=== PATIENT | male | born 1965 | race Caucasian/White ===

== ENCOUNTER → 2017-12-27 | Outpatient (CLI) | payer OTHER | LOC: M WUC 14:26 | DX: S46.012A Strain of muscle(s) and tendon(s) of the rotator cuff of left shoulder, initial encounter (principal); X58.XXXA Exposure to other specified factors, initial encounter; Y92.9 Unspecified place or not applicable | CPT/HCPCS: 73030 ==

== ENCOUNTER → 2020-06-02 | Outpatient (CLI) | payer BC ==
--- NOTE | 2020-06-02 16:03 | REP ---
INDICATION: EPIDIDYMITIS. COMPARISON: None. TECHNIQUE: Real-time sonographic evaluation of scrotum and contents performed. FINDINGS: The testicles are normal in size and echotexture, right testicle measuring 4.3 x 2.1 x 2.9 cm and left testicle 4.2 x 2.3 x 2.6 cm. There are bilateral varicoceles present, with bilateral prominent venous structures more so on the right than on the left. A cyst in the head of the right epididymis measures slightly greater than 1 cm in maximum diameter. There is no current evidence of epididymitis or orchitis. There is no testicular mass or torsion. Appears to be mild tubular ectasia in the mediastinum of each testis. Blood flow is seen in each testicle with duplex Doppler evaluation. IMPRESSION: No testicular mass or torsion. No current evidence of epididymitis. There is a cyst in the head of the right epididymis slightly greater than 1 cm in maximum diameter. There are bilateral varicoceles, right larger than the left. <Electronically signed by John Awan > 06/02/20 [id number]
== END ==
LOC: M RAD 15:04
PROVIDERS: ATTEND Urology
DX: N50.3 Cyst of epididymis (principal); I86.1 Scrotal varices

== ENCOUNTER → 2020-06-22 | Outpatient (CLI) | payer BC ==
--- NOTE | 2020-06-23 15:22 | SLEEPCENT ---
NOCTURNAL POLYSOMNOGRAPHY DATE: 06/22/2020 ORDERED BY: GEN Fuentes Nocturnal polysomnography was performed for evaluation of sleep physiology. 8 hours and 11 minutes of data were reviewed. There were 268 minutes of sleep identified. Sleep latency was mildly prolonged at 35 minutes. REM latency more so prolonged at 226 minutes. Sleep architecture once established was fair with some fragmentation. Overall sleep efficiency was only 55.2% due to a period of wake after sleep onset. The electrocardiogram showed a sinus rhythm with an average heart rate of 60 beats per minute. EEG showed some artifactual change. No focal events were identified. There were normal waveforms for wake and sleep. There were 140 respiratory events identified of 10 seconds in duration or greater for apnea-hypopnea index of 31.3. The events were obstructive not exclusive to sleep stage nor body posture. Arousals from respiratory events occurred 12.5 times per hour and oxygen desaturations were seen into the 80s. There was some activity in the limb leads, but arousals from limb events were few. IMPRESSION: Obstructive sleep apnea syndrome (G47.33), apnea-hypopnea index 31.5. RECOMMENDATION: The patient should be encouraged to return to [facility]. In the interim, alcohol and sedative avoidance should be practiced and caution exercised during the operation of motor vehicles. Dr. Rivas
== END ==
LOC: M SLEEP 20:00
PROVIDERS: ATTEND Nurse Practitioner Family
DX: G47.33 Obstructive sleep apnea (adult) (pediatric) (principal)

== ENCOUNTER → 2020-07-01 | Outpatient (REF) | payer BC ==
[2020-07-01 13:27] LABS: APPEARANCE, URINE CLEAR (CLEAR); BACTERIA, URINE AUTO NEGATIVE (NEGATIVE); BILIRUBIN, URINE AUTO NEGATIVE (NEGATIVE); BLOOD, URINE BLOOD NEGATIVE (NEGATIVE); CALCIUM OXALATE CRYSTALS SMALL; COLOR, URINE YELLOW (YELLOW); GLUCOSE, URINE (UA) AUTO NEGATIVE (NEGATIVE); KETONE, URINE AUTO NEGATIVE (NEGATIVE); LEUKOCYTE ESTERASE, URINE AUTO NEGATIVE (NEGATIVE); MUCUS, URINE SMALL (NEGATIVE); NITRITE, URINE AUTO NEGATIVE (NEGATIVE); PROTEIN, URINE AUTO NEGATIVE (NEGATIVE); RBC, URINE AUTO 1 /HPF (0-3); SPECIFIC GRAVITY URINE AUTO 1.026 (1.002-1.035); SQUAMOUS EPITHELIAL CELL UR AU 0 /HPF (0-6); UROBILINOGEN, URINE AUTO 0.2 mg/dL (0.0-2.0); WBC, URINE AUTO 0 /HPF (0-3)
== END ==
LOC: M SMT 12:42
PROVIDERS: ATTEND Urology
DX: N45.1 Epididymitis (principal)

== ENCOUNTER → 2020-07-17 | Outpatient (CLI) | payer BC ==
--- NOTE | 2020-07-18 14:54 | SLEEPCENT ---
NOCTURNAL POLYSOMNOGRAPHY DATE: 07/17/2020 ORDERED BY: GEN Fuentes Diagnostic nocturnal polysomnography was performed for the titration of pressure therapy in this patient with obstructive sleep apnea syndrome with apnea-hypopnea index of 31.5. For testing the patient was fit with a ResMed Quattro full face mask of large size was used, 4 cm of water pressure were applied to the circuit, and the lights were extinguished. 7 hours and 38 minutes of data were reviewed. There were 185 minutes of sleep identified. Sleep latency was delayed at 153.5 minutes. REM latency was normal at 102 minutes. Sleep architecture once established was reasonably good. There was one REM cycles noted. Overall sleep efficiency was 41.2%. The electrocardiogram showed a sinus rhythm with occasional PVCs with average heart rate of 68 beats per minute. EEG showed normal waveforms for wake and sleep. Respiratory events were best palliated with CPAP at a pressure of +8. IMPRESSION: Obstructive sleep apnea syndrome (G47.33). RECOMMENDATION: Nightly use of pressure therapy 8 cm of water.
== END ==
LOC: M SLEEP 20:00
PROVIDERS: ATTEND Nurse Practitioner Family
DX: G47.33 Obstructive sleep apnea (adult) (pediatric) (principal)

== ENCOUNTER → 2020-10-15 | Outpatient (CLI) | payer BC ==
[~2020-10-15] MED LIST: MULT-40 PO; OSTE5TAB PO
== END ==
LOC: M LABSMTC 09:36
PROVIDERS: ATTEND Anesthesiology
DX: Z01.812 Encounter for preprocedural laboratory examination (principal); Z20.822 Contact with and (suspected) exposure to COVID-19

== ENCOUNTER 2020-10-20 07:44 | Day surgery (SDC) | payer BC ==
[~2020-10-20] VITALS: Ht 182.9 cm; Wt 96.6 kg
[~2020-10-20 07:44] MED LIST changes: +NS 1,000 ML IV ONE
[2020-10-20] MEDS ORDERED: propofoL 200 MG/20 ML VIAL As Ordered ONE (08:58)
[2020-10-20] MEDS ORDERED: LIDOCAINE 2% 100MG/5ML SDV (FOR ANES.) As Ordered ONE (08:58)
--- NOTE | 2020-10-20 09:01 | ROOR ---
Patient Name: Vicente Gupta Procedure Date: 10/20/2020 8:16 AM Date of : 1965 Age: 55 Room: [facility] Gender: Male Note Status: Finalized Procedure: Colonoscopy Indications: Screening for colorectal malignant neoplasm Providers: Luis Garner MD Referring MD: Ricci Rivas MD Requesting Provider: Medicines: Monitored Anesthesia Care Complications: No immediate complications. Procedure: Pre-Anesthesia Assessment: - Prior to the procedure, a History and Physical was performed, and patient medications and allergies were reviewed. The patient is competent. The risks and benefits of the procedure and the sedation options and risks were discussed with the patient. All questions were answered and informed consent was obtained. Patient identification and proposed procedure were verified by the physician, the nurse and the anesthesiologist in the procedure room. Mental Status Examination: alert and oriented. Airway Examination: normal oropharyngeal airway and neck mobility. Respiratory Examination: clear to auscultation. CV Examination: normal. Prophylactic Antibiotics: The patient does not require prophylactic antibiotics. Prior Anticoagulants: The patient has taken no previous anticoagulant or antiplatelet agents. ASA Grade Assessment: II - A patient with mild systemic disease. After reviewing the risks and benefits, the patient was deemed in satisfactory condition to undergo the procedure. The anesthesia plan was to use monitored anesthesia care (MAC). Immediately prior to administration of medications, the patient was re-assessed for adequacy to receive sedatives. The heart rate, respiratory rate, oxygen saturations, blood pressure, adequacy of pulmonary ventilation, and response to care were monitored throughout the procedure. The physical status of the patient was re-assessed after the procedure. The Colonoscope was introduced through the anus and advanced to the terminal ileum, with identification of the appendiceal orifice and IC valve. The colonoscopy was performed without difficulty. The patient tolerated the procedure well. The quality of the bowel preparation was good. The terminal ileum, ileocecal valve, appendiceal orifice, and rectum were photographed. Scope insertion time was 4 minutes. Scope withdrawal time was 9 minutes. The total duration of the procedure was 14 minutes. Findings: The perianal and digital rectal examinations were normal. The terminal ileum appeared normal. Three sessile polyps were found in the descending colon, transverse colon and ascending colon. The polyps were 5 to 6 mm in size. These polyps were removed with a cold snare. Resection and retrieval were complete. Verification of patient identification for the specimen was done by the physician and nurse using the patient's name, date and medical record number. Estimated blood loss was minimal. Non-bleeding external and internal hemorrhoids were found during retroflexion. The hemorrhoids were medium-sized. Impression: - The examined portion of the ileum was normal. - Three 5 to 6 mm polyps in the descending colon, in the transverse colon and in the ascending colon, removed with a cold snare. Resected and retrieved. - Non-bleeding external and internal hemorrhoids. Recommendation: - Patient has a contact number available for emergencies. The signs and symptoms of potential delayed complications were discussed with the patient. Return to normal activities tomorrow. Written discharge instructions were provided to the patient. - High fiber diet. - Continue present medications. - Use fiber, for example Citrucel, Fibercon, Konsyl or Metamucil. - Await pathology results. - Repeat colonoscopy in 3 - 5 years for surveillance based on pathology results. - Telephone GI clinic for pathology results in 2 weeks. - Return to primary care physician. Procedure Code(s): --- Professional --- 57543, Colonoscopy, flexible; with removal of tumor(s), polyp(s), or other lesion(s) by snare technique Diagnosis Code(s): --- Professional --- Z12.11, Encounter for screening for malignant neoplasm of colon K64.8, Other hemorrhoids K63.5, Polyp of colon CPT copyright 2019 [employer]. All rights reserved. The codes documented in this report are preliminary and upon automotive design layout drafter review may be revised to meet current compliance requirements. Luis Garner MD Luis Garner MD 10/20/2020 9:00:20 AM Electronically signed by Luis Garner MD Number of Addenda: 0 Note Initiated On: 10/20/2020 8:16 AM Estimated Blood Loss: Estimated blood loss was minimal.
[2020-10-20 09:12] VITALS: BP 133/77
== END 2020-10-20 09:13 | disposition home or self-care (01) ==
LOC: M OPP 07:44
PROVIDERS: ATTEND Internal Medicine Gastroenterology
DX: Z12.11 Encounter for screening for malignant neoplasm of colon (principal); K63.5 Polyp of colon; K64.8 Other hemorrhoids; G47.30 Sleep apnea, unspecified